=== PATIENT | male | born 1940 | race Two or more races ===

== ENCOUNTER 2023-03-01 18:07 | Inpatient (IN) | payer MEDICAID ==
[~2023-03-01] VITALS: Ht 175.3 cm; Wt 49.0 kg
[2023-03-01] MEDS ORDERED: VANCOMYCIN 1G PREMIX 200 ML IV ONE (20:00)
[2023-03-01] MEDS ORDERED: SODIUM CHLORIDE 0.9% 1000ML BAG (SEPSIS BOLUS) IV ONE (20:00)
[2023-03-01] MEDS ORDERED: PIPERACILLIN/TAZ 3.375G PREMIX 50 ML IV ONE (20:00)
[2023-03-01 20:21] LABS: HEMATOCRIT. 30.6 % (42.0-52.0); HEMOGLOBIN. 9.6 g/dL (14.0-18.0); MEAN CORPUSCULAR HEMOGLOBIN 22.5 pg (28.0-32.0); MEAN CORPUSCULAR VOLUME 71.3 fL (80.0-94.0); MEAN PLATELET VOLUME 7.8 fl (7.4-10.4); PLATELET 449 x1000/uL (130-400); RED BLOOD CELL COUNT 4.29 mill/uL (4.7-6.1); RED CELL DISTRIBUTION WIDTH 18.4 % (11.6-14.6)
[2023-03-01 20:29] LABS: CHLORIDE 96 mEq/L (98-107)
[2023-03-01 20:35] LABS: INR 1.1; PARTIAL THROMBOPLASTIN TIME 30.7 sec (23.4-31.0); PROTHROMBIN TIME 11.3 sec (9.6-11.0)
[2023-03-01 21:36] LABS: CLARITY URINE CLEAR (CLEAR); COLOR URINE YELLOW (YELLOW); KETONES URINE 2+ (NEGATIVE); LEUKOCYTE ESTERASE URINE NEGATIVE (NEGATIVE); NITRITE URINE NEGATIVE (NEGATIVE); OCCULT BLOOD URINE NEGATIVE (NEGATIVE); PH URINE 6.5 (4.5-8.0); PROTEIN URINE TRACE (NEGATIVE); SPECIFIC GRAVITY URINE 1.017 (1.005-1.030); UROBILINOGEN URINE 0.2 E.U./dL (0.2-1.0)
[2023-03-01 21:51] LABS: PLATELET ESTIMATE SLIGHTLY INCREASED
[2023-03-01] MEDS ORDERED: IPRATROPIUM/ALBUTEROL 0.5-3(2.5)MG/3ML NEB HHN PRN (23:00)
[2023-03-01] MEDS ORDERED: DOCUSATE SODIUM 100MG CAPSULE PO PRN (23:00)
[2023-03-01] MEDS ORDERED: MAGNESIUM/ALUMINUM HYDROXIDE/SIMETHICONE 30ML UDC PO PRN (23:00)
[2023-03-01] MEDS ORDERED: DEXTROSE 50% WATER 50ML SYRINGE IV PRN (23:00)
[2023-03-01] MEDS ORDERED: HYDROCODONE/ACETAMINOPHEN 5/325MG TABLET PO PRN (23:00)
[2023-03-01] MEDS ORDERED: ACETAMINOPHEN 325MG TABLET PO PRN ×2 (23:00)
[2023-03-01] MEDS ORDERED: FAMOTIDINE 20MG/2ML VIAL IV SCH (23:00)
[2023-03-01] MEDS ORDERED: GUAIFENESIN 200MG/10ML SUGAR FREE UDC PO PRN (23:00)
[2023-03-01] MEDS ORDERED: SODIUM CHLORIDE 0.9% 500 ML IV NR (23:26)
[2023-03-02 01:30] VITALS: BP 113/58; PULSE 68; RESP 18; TEMP 98.8
[2023-03-02] MEDS: DIGOXIN 500MCG/2ML AMP IV SCH ×2 (02:30→19:07)
[2023-03-02] MEDS ORDERED: VANCOMYCIN 750MG PREMIX 150 ML IV SCH ×2 (06:00→07:00)
[2023-03-02] MEDS ORDERED: PIPERACILLIN/TAZOBACTAM 3.375 G in DEXTROSE 5% WATER 50 ML IV SCH (06:00)
[2023-03-02] MEDS: SODIUM CHLORIDE 0.9% 1,000 ML IV SCH ×2 (07:07→12:20)
[2023-03-02 07:09] LABS: BASOPHILS % 0.4 % (0.0-2.0); EOSINOPHILS % 0.1 % (0.0-5.0); LYMPHOCYTES % 11.7 % (20.0-50.0); MEAN CORPUSCULAR HEMOGLOBIN 22.6 pg (28.0-32.0); MEAN CORPUSCULAR VOLUME 70.4 fL (80.0-94.0); MEAN PLATELET VOLUME 8.3 fl (7.4-10.4); MONOCYTES % 6.2 % (2.0-8.0); NEUTROPHILS % 81.6 % (40.0-76.0); PLATELET 415 x1000/uL (130-400); RED BLOOD CELL COUNT 3.97 mill/uL (4.7-6.1); RED CELL DISTRIBUTION WIDTH 18.7 % (11.6-14.6)
[2023-03-02] MEDS: BLOOD SUGAR DIAGNOSTIC STRIP TEST SCH ×4 (07:16→21:05)
[2023-03-02 07:38] LABS: CREATINE KINASE 24 IU/L (39-308); CREATINE KINASE MB FRACTION < 1.0 ng/mL (0.5-3.6)
[2023-03-02 08:00] VITALS: BP 105/49; PULSE 93; RESP 16; TEMP 97.4
[2023-03-02] MEDS: INSULIN LISPRO 100 UNITS/ML SUBCUT SCH ×4 (08:10→21:25)
[2023-03-02] MEDS: PIPERACILLIN/TAZOBACTAM 3.375 G in DEXTROSE 5% WATER 50 ML IV SCH ×3 (09:42→21:05)
[2023-03-02] MEDS: FAMOTIDINE 20MG/2ML VIAL IV SCH (09:43)
[2023-03-02] MEDS: ASPIRIN 81MG TABLET PO SCH (09:43)
[2023-03-02] MEDS: ENOXAPARIN 40MG/0.4ML SYR SUBCUT SCH (09:43)
[2023-03-02] MEDS: VANCOMYCIN 750MG PREMIX 150 ML IV SCH ×2 (09:44→21:04)
[2023-03-02 12:00] VITALS: BP 132/48; PULSE 85; RESP 16; TEMP 97.9
[2023-03-02 13:20] LABS: CHLORIDE 98 mEq/L (98-107)
[2023-03-02 13:33] LABS: HDL CHOLESTEROL 30 mg/dL (40-59); LDL CHOLESTEROL 42 mg/dL (5-100); T4 FREE 1.55 ng/dL (0.76-1.46)
[2023-03-02] MEDS: DEXTROSE 5% WATER 1,000 ML IV SCH (14:42)
[2023-03-02 16:00] VITALS: BP 104/35; PULSE 99; RESP 16; TEMP 98.9
[2023-03-02 17:14] LABS: TOTAL IRON BINDING CAPACITY 200 ug/dL (250-450)
[2023-03-02 17:32] LABS: CREATINE KINASE 19 IU/L (39-308); CREATINE KINASE MB FRACTION < 1.0 ng/mL (0.5-3.6)
[2023-03-02] MEDS: SODIUM HYPOCHLORITE SOLUTION (0.5%)FULL STRENGTH TOP SCH (19:07)
[2023-03-02 20:00] VITALS: BP 102/43; PULSE 107; RESP 18; TEMP 97.9
[2023-03-03] VITALS: BP 133/60; PULSE 77; RESP 18; TEMP 98.6
[2023-03-03] MEDS: DEXTROSE 5% WATER 1,000 ML IV SCH ×2 (01:35→16:15)
[2023-03-03 04:00] VITALS: BP 118/82; PULSE 104; RESP 18; TEMP 97.7
[2023-03-03] MEDS: PIPERACILLIN/TAZOBACTAM 3.375 G in DEXTROSE 5% WATER 50 ML IV SCH ×3 (05:57→22:31)
[2023-03-03] MEDS: BLOOD SUGAR DIAGNOSTIC STRIP TEST SCH ×4 (05:58→21:00)
[2023-03-03 07:10] LABS: HEMATOCRIT 28.9 % (42.0-52.0); HEMOGLOBIN 9.2 g/dL (14.0-18.0); MEAN CORPUSCULAR HEMOGLOBIN 22.7 pg (28.0-32.0); MEAN CORPUSCULAR VOLUME 71.6 fL (80.0-94.0); PLATELET 400 x1000/uL (130-400); RED BLOOD CELL COUNT 4.04 mill/uL (4.7-6.1); RED CELL DISTRIBUTION WIDTH 17.9 % (11.6-14.6)
[2023-03-03 08:00] VITALS: BP 116/55; PULSE 114; RESP 18; TEMP 97.1
[2023-03-03] MEDS: INSULIN LISPRO 100 UNITS/ML SUBCUT SCH ×4 (08:08→23:33)
[2023-03-03 08:20] LABS: CHLORIDE 97 mEq/L (98-107)
[2023-03-03 09:00] LABS: DIGOXIN 1.6 ng/mL (0.9-2.0)
[2023-03-03] MEDS: FAMOTIDINE 20MG/2ML VIAL IV SCH (09:48)
[2023-03-03] MEDS: VANCOMYCIN 750MG PREMIX 150 ML IV SCH (09:48)
[2023-03-03] MEDS: ASPIRIN 81MG TABLET PO SCH (09:48)
[2023-03-03] MEDS: ENOXAPARIN 40MG/0.4ML SYR SUBCUT SCH (09:49)
[2023-03-03] MEDS: SODIUM HYPOCHLORITE SOLUTION (0.5%)FULL STRENGTH TOP SCH (09:49)
[2023-03-03 12:00] VITALS: BP 101/45; PULSE 101; RESP 16; TEMP 97.4
[2023-03-03 16:00] VITALS: BP 130/52; PULSE 105; RESP 18; TEMP 97.1
[2023-03-03] MEDS ORDERED: NALOXONE HCL 0.4MG/ML VIAL IV PRN (16:45)
[2023-03-03] MEDS: DIGOXIN 500MCG/2ML AMP IV SCH (17:34)
[2023-03-03 20:00] VITALS: BP 100/57; PULSE 95; RESP 15; TEMP 97.5
[2023-03-03] MEDS ORDERED: VANCOMYCIN 1G PREMIX 200 ML IV SCH (21:00)
[2023-03-04] VITALS: BP 98/47; PULSE 101; RESP 16; TEMP 98.4
[2023-03-04] MEDS: DEXTROSE 5% WATER 1,000 ML IV SCH (03:24)
[2023-03-04] MEDS: PIPERACILLIN/TAZOBACTAM 3.375 G in DEXTROSE 5% WATER 50 ML IV SCH ×3 (05:52→14:45)
[2023-03-04] MEDS: BLOOD SUGAR DIAGNOSTIC STRIP TEST SCH ×2 (06:50→12:20)
[2023-03-04] MEDS: ASPIRIN 81MG TABLET PO SCH (08:17)
[2023-03-04] MEDS: ENOXAPARIN 40MG/0.4ML SYR SUBCUT SCH (08:18)
[2023-03-04] MEDS: FAMOTIDINE 20MG/2ML VIAL IV SCH (08:25)
[2023-03-04] MEDS: INSULIN LISPRO 100 UNITS/ML SUBCUT SCH ×2 (08:26→12:50)
[2023-03-04] MEDS ORDERED: POTASSIUM CHLORIDE 20MEQ TABLET SR PO NR (08:45)
[2023-03-04] MEDS: SODIUM HYPOCHLORITE SOLUTION (0.5%)FULL STRENGTH TOP SCH (09:00)
[2023-03-04] MEDS ORDERED: ONDANSETRON HCL 4MG/2ML INJ IV NR (09:30)
[2023-03-04 12:00] VITALS: BP 99/40; PULSE 99; RESP 18; TEMP 96.9
[2023-03-04 15:14] VITALS: BP 99/40; PULSE 85; TEMP 96.9; O2SAT 100
[2023-03-04] MEDS ORDERED: DIGOXIN 125MCG TABLET PO SCH ×2 (18:00)
== END 2023-03-04 15:37 | disposition hospice, inpatient (51) | DRG 710 ==
LOC: ER 18:07 → 7WST 22:39 → ENRESERV 23:59 → 6WST 03-03 18:36
PROVIDERS: ADMIT Hospitalist; ATTEND Hospitalist
PROC: 0YBN0ZZ Excision of Left Foot, Open Approach (ICD-10-PCS; principal; 2023-03-02)
DX: A41.9 Sepsis, unspecified organism (principal); G92.8 Other toxic encephalopathy; E43 Unspecified severe protein-calorie malnutrition; E11.10 Type 2 diabetes mellitus with ketoacidosis without coma; A48.0 Gas gangrene; E11.52 Type 2 diabetes mellitus with diabetic peripheral angiopathy with gangrene; E86.0 Dehydration; E11.22 Type 2 diabetes mellitus with diabetic chronic kidney disease; M86.172 Other acute osteomyelitis, left ankle and foot; D50.9 Iron deficiency anemia, unspecified; Z66 Do not resuscitate; E11.42 Type 2 diabetes mellitus with diabetic polyneuropathy; E11.621 Type 2 diabetes mellitus with foot ulcer; L97.529 Non-pressure chronic ulcer of other part of left foot with unspecified severity; I48.91 Unspecified atrial fibrillation; N18.9 Chronic kidney disease, unspecified; E11.69 Type 2 diabetes mellitus with other specified complication; I12.9 Hypertensive chronic kidney disease with stage 1 through stage 4 chronic kidney disease, or unspecified chronic kidney disease; D75.839 Thrombocytosis, unspecified; E11.65 Type 2 diabetes mellitus with hyperglycemia; E11.628 Type 2 diabetes mellitus with other skin complications; E78.00 Pure hypercholesterolemia, unspecified; L08.9 Local infection of the skin and subcutaneous tissue, unspecified; Z68.1 Body mass index [BMI] 19.9 or less, adult; Z51.5 Encounter for palliative care
CPT/HCPCS: 36415; 71045; 73630; 73721; 80053; 80061; 80076; 80162; 80202; 81003; 82010; 82270; 82550; 82553; 82728; 82962; 83036; 83540; 83550; 83605; 83880; 84145; 84439; 84443; 84484; 85025; 85027; 87070; 87077; 87186; 93005; 93306; 93970; 99285; C1893; J1160; J1650; J1815; J2405; J2543; J3370; J3490; J7030; J7060; J7070